=== PATIENT | female | born 1995 | race Caucasian/White ===

== ENCOUNTER 2023-01-25 10:12 | Emergency (ER) | payer OTHER, SELFPAY ==
[2023-01-25 10:25] VITALS: BP 131/76; PULSE 98; RESP 16; TEMP 37.3; O2SAT 100; BMI 15.7
--- NOTE | 2023-01-25 10:44 | ED.GENADULT ---
HPI - General Adult General Chief complaint: Dental/Oral Stated complaint: infection on jaw Time Seen by Provider: 01/25/23 10:44 Source: patient Mode of arrival: ambulatory Limitations: no limitations History of Present Illness HPI narrative: Patient is a 27 year old assigned female at with no reported medical history presenting to the emergency department today with right upper dental pain and swelling. Patient states that she has had dental abscesses before and believes this to be another one. Patient states that she hasn't been to a dentist in a year and the last time she went, they weren't very nice, thus she now has anxiety surrounding dental visits. Patient denies any dizziness, lightheadedness, abdominal pain, nausea, vomiting, fever, chills, blurry vision, double vision, loss of vision, chest pain, difficulty breathing, shortness of breath, back pain, night sweats, pain with urination, increased urinary frequency, increased urinary urgency, blood in her urine or stool, syncope or a near syncopal episode, recent trauma or falls, bowel incontinence, bladder incontinence, bowel retention, bladder retention, or any other complaints at this time. Onset (ago): day(s) (1) Location: mouth Severity: mild Severity scale (1-10): 3 Quality: aching and dull Pain Consistency: constant Relieving factors: none Exacerbating factors: none Associated symptoms: denies other symptoms Treatments prior to arrival: NSAID Related Data Previous Rx's Medication Instructions Recorded chlorhexidine gluconate 0.12 % 15 ml buccal BID #118 mL 01/25/23 mouthwash (Peridex) penicillin V potassium 500 mg 500 mg PO BID 10 days #20 tabs 01/25/23 tablet Allergies Allergy/AdvReac Type Severity Reaction Status Date / Time banana [BANANA] Allergy Severe DIFFICULTY Verified 01/25/23 10:24 BREATHING, ITCHING, BURNING PAIN, LETHARGY Review of Systems Constitutional: Constitutional: Reports no additional constitutional complaints, Denies chills, Denies fever(s) and Denies night sweats Eyes: Eyes: Reports no additional eye complaints, Denies blurry vision, Denies change in vision, Denies diplopia, Denies eye discharge, Denies loss of vision and Denies eye pain ENT: Denies dizziness and Reports mouth pain Cardiovascular: Cardiovascular: Reports no additional cardiovascular complaints, Denies chest pain, Denies lightheadedness, Denies Loss of Consciousness and Denies dyspnea Respiratory: Respiratory: Reports no additional respiratory complaints and Denies dyspnea Gastrointestinal: Gastrointestinal: Reports no additional gastrointestinal complaints, Denies abdominal pain, Denies melena, Denies hematochezia, Denies change in bowel habits and Denies change in stool character Genitourinary: Genitourinary: Denies hematuria, Denies urinary frequency, Denies dysuria, Denies urinary incontinence, Denies urinary hesitancy and Denies urinary urgency Musculoskeletal: Musculoskeletal: Reports no additional musculoskeletal complaints, Denies numbness and Denies tingling Neurologic: Denies dizziness, Denies loss of vision, Denies numbness and Denies tingling Psychiatric: Psychiatric: Reports no additional psychiatric complaints Endocrine: Endocrine: Reports no additional endocrine complaints Hematologic/Lymphatic: Hematologic/Lymphatic: Reports no additional hematologic/lymphatic complaints Allergic/Immunologic: Allergic/Immunologic: Reports no additional allergic/immunologic complaints PMFSH Past Medical History Attestation statement: The following information was validated with the patient. Source: old records reviewed and nursing notes reviewed Social History Social History Advance Directives: No Advance Directives Information Provided: Yes Physical Exam ED Vital Signs: Vital Signs - 24 hr 01/25/23 10:25 Temperature 99.2 F Pulse Rate 98 Respiratory Rate 16 Blood Pressure 131/76 Pulse Oximetry 100 Oxygen Delivery Method Room Air BMI result Body Mass Index 15.7 Const General: cooperative, no acute distress, alert and awake Nutritional Appearance: well nourished Orientation/consciousness: patient oriented x3 Limitations: no limitations [facility] Head: Yes normal to inspection and Yes atraumatic Ears: hearing grossly normal bilaterally and external ears normal General nose exam: Normal external nose present, no nasal discharge noted and no epistaxis Face and sinus: Yes normal facial exam, No abrasion and No laceration Mouth: Normal oral and palatal mucosa present, no drooling and no muffled voice Teeth image: 1. erythema and pain to this area, no fluctuance felt Eyes General: appearance normal, both eyes and all related structures Periorbital: periorbital findings normal Eyelids: Yes eyelids normal Conjunctivae: conjunctivae normal Pupils: Equal, round and reactive pupils present EOM: EOMs intact bilaterally Neck Neck: Yes normal visual inspection, Yes full ROM and Yes no lymphadenopathy Chest Chest palpation & inspection: normal inspection of the chest Resp Effort & Inspection: normal respiratory effort and able to speak in complete sentences GI Inspection: Yes normal to inspection Neuro General: patient oriented x3 and moves all extremities Cranial nerves: Yes Equal, round and reactive pupils present Cognition (Neuro): normal cognition Motor exam (neuro): 5/5 motor strength present throughout Sensory Exam: Normal double simultaneous stimulation for sensation Coordination: [id number] test normal Extrem General: Yes normal to inspection, Yes full ROM and Yes capillary refill normal Psych Appearance: grossly normal Mental Status: mental status grossly normal Affect: normal affect Attitude: cooperative Thought process: Normal thought process present Thought content: Normal thought content present Insight: Good insight present (Psych) Medical Decision Making Medical Decision Making MDM Narrative: Patient is a 27 year old assigned female at with no reported medical history presenting to the emergency department today with right upper dental pain. Patient's physical exam showed an area of the right upper mouth of erythema and pain to palpation but no fluctuance was felt. There was no obvious abscess to incise and drain. I explained my physical exam findings to the patient. I answered all questions asked by the patient. Patient received PO [place] which she stated helped her symptoms significantly. I stressed the importance of the patient taking her medication as prescribed. I stressed the importance of the patient following up with her primary care provider and a dentist. I stressed the importance of the patient returning to the emergency department immediately if her symptoms were to worsen or if she were to develop any dizziness, shortness of breath, difficulty breathing, chest pain, blurry vision, loss of vision, nausea, vomiting, abdominal pain, fever, chills, back pain, or any other complaints. Patient verbalized agreement and understanding with this treatment plan and discharge. Differential Diagnosis Differential Diagnoses: The differential diagnosis associated with the presentation includes dental abscess Discharge Plan Discharge Clinical Impression: Dental abscess Patient Disposition: Home, Self-Care Instructions: Dental Abscess (ED) Additional Instructions: Follow up with your primary care provider and a dentist. Return to the emergency department immediately if your symptoms worsen or if you develop any dizziness, shortness of breath, difficulty breathing, chest pain, blurry vision, loss of vision, nausea, vomiting, abdominal pain, fever, chills, back pain, or any other complaints. Call or visit any of the clinics below to establish with a dentist: [facility] [address] [place] [address] [facility] [address] [facility], [address] [address] [place] [address] [facility] [address] [place] [address] [facility] [address] [place] [address] [place] [address] [place] [address] Prescriptions: New penicillin V potassium 500 mg tablet 500 mg PO BID 10 Days Qty: 20 0RF chlorhexidine gluconate [Peridex] 0.12 % mouthwash 15 ml buccal BID Qty: 118 0RF Referrals[place] [facility] [place] [facility] [place]] (Call to establish and follow up with a primary care provider. If you already have a primary care provider, please follow up with them.) [facility] [place] [facility] [place]] (Call to establish and follow up with a primary care provider. If you already have a primary care provider, please follow up with them.) [facility] [place] [facility] [Provider Group] (Call to establish and follow up with a primary care provider. If you already have a primary care provider, please follow up with them.) Stand Alone Forms: Work/School Release Print Language: Cymraes
[2023-01-25] MEDS: HYDROcodone Bit/Acetam 5/325 TABLET 1 TAB PO (11:13)
== END 2023-01-25 11:19 | disposition home or self-care (01) ==
PROVIDERS: Emergency Provider Emergency Medicine
DX: K04.7 Periapical abscess without sinus (principal); K08.89 Other specified disorders of teeth and supporting structures
CPT/HCPCS: 99283

== ENCOUNTER 2023-01-26 10:24 | Emergency (ER) | payer OTHER, SELFPAY ==
--- NOTE | ~2023-01-26 | CT_ITS ---
EXAMINATION: CT FACIAL BONES WITH CONTRAST CLINICAL INFORMATION: 27-year-old female presents for evaluation of possible dental abscess. COMPARISON: None available. TECHNIQUE: Multidetector CT imaging through the maxillofacial region performed with intravenous administration of 85 mL Omnipaque 350. Axial images and multiplanar reformatted images are reviewed. This CT examination was performed using dose optimization techniques as appropriate, variously including the following: *Automated exposure control *Adjustment of mA and/or kV according to patient size (this includes techniques or standardized protocols for targeted exams where dose is matched to indication/reason for exam; i.e. extremities or head) *Use of iterative reconstruction technique DLP: 206 mGy-cm FINDINGS: Streak artifact is present by a metallic tongue piercing. The patient is missing many mandibular and maxillary teeth. Dental caries and mild periapical lucency around roots of what appears to represent a residual left maxillary canine tooth. However, no evidence of a maxillary region soft tissue abscess. Also, there is no evidence of a perimandibular abscess. The sublingual and submandibular spaces are unremarkable. The parotid and submandibular glands are normal. No pathologic sized lymph nodes within the visualized neck. The orbits, including lamina papyracea, are intact. The globes and retrobulbar fat planes are normal. The nasal bones, pterygoid plates and zygomatic arches are intact. Temporomandibular joints are normal. There is mucosal thickening of the right maxillary sinus without air-fluid level. Otherwise, paranasal sinuses are well aerated. The mastoid air cells are normal. The visualized intracranial structures are normal. The visualized craniocervical junction and upper cervical spine are normal. CT/CT facial bones w IV con IMPRESSION: * No evidence of soft tissue abscess or lymphadenopathy within the visualized face or upper neck. * There is a dental caries and periapical lucency of the left maxillary canine tooth. * [id number] mucosal thickening of the right maxillary sinus without air-fluid level. Otherwise, paranasal sinuses are normal. The maxillofacial bones are intact.
[2023-01-26 10:26] VITALS: BP 127/91; PULSE 96; RESP 16; TEMP 36.6; O2SAT 98; BMI 15.8
--- NOTE | 2023-01-26 10:33 | ED.DENTAL ---
HPI - Dental/Oral General Chief complaint: Dental/Oral Stated complaint: R side of face swollen Time Seen by Provider: 01/26/23 10:45 Source: patient Mode of arrival: ambulatory Limitations: no limitations History of Present Illness HPI Narrative: This is a 27-year-old female presenting to the emergency department for evaluation of right-sided upper dental pain and swelling going on for the past week worsening, was seen here yesterday for the same now reporting worsening R sided facial swelling, discharged home on penicillin and advised to return with new or worsening symptoms. Patient tells me that despite taking 3 doses of antibiotics a dental pain and swelling has been worsening. She tells me she is going to see a dentist however she is nervous to do so due to her previous experiences. Denies fevers, chills, chest pain, shortness of breath, nausea, vomiting, changes in voice, difficulty controlling secretions. Related Data Previous Rx's Medication Instructions Recorded chlorhexidine gluconate 0.12 % 15 ml buccal BID #118 mL 01/25/23 mouthwash (Peridex) penicillin V potassium 500 mg 500 mg PO BID 10 days #20 tabs 01/25/23 tablet amoxicillin 875 mg-potassium 1 tab PO BID 10 days #20 tabs 01/26/23 clavulanate 125 mg tablet ketorolac 10 mg tablet 10 mg PO TID PRN pain 5 days #15 01/26/23 tabs morphine 15 mg immediate release 15 mg PO Q6H PRN pain 5 days #10 01/26/23 tablet tabs prednisone 20 mg tablet 40 mg PO DAILY 5 days #10 tabs 01/26/23 Allergies Allergy/AdvReac Type Severity Reaction Status Date / Time banana [BANANA] Allergy Severe DIFFICULTY Verified 01/26/23 10:26 BREATHING, ITCHING, BURNING PAIN, LETHARGY Review of Systems Review of Systems: Constitutional : No Fever, No Chills ENT/Mouth : No swallowing difficulty, no change in voice, positive dental pain, positive jaw pain, positive facial swelling Eyes: No Eye Pain, No Swelling Cardiovascular : No Chest Pain, No SOB Respiratory : No Cough, No Sputum Gastrointestinal : No Nausea, No Vomiting, No Diarrhea Genitourinary : No Dysuria Musculoskeletal : No Myalgias Skin : No rash Neuro : No Weakness, No Numbness, No Headache Yes all other systems are reviewed and are negative PMFSH Past Medical History Attestation statement: The following information was validated with the patient. Source: old records reviewed and nursing notes reviewed Social History Social History Advance Directives: No Advance Directives Information Provided: No Physical Exam Vital Signs: Vital Signs: Last Vital Signs Temp 98 F 01/26/23 10:26 Pulse 68 01/26/23 12:31 Resp 16 01/26/23 12:31 BP 115/77 01/26/23 12:31 Pulse Ox 100 01/26/23 12:31 O2 Del Method Room Air 01/26/23 12:31 BMI result Body Mass Index 15.8 vss Appearance: Alert.? Oriented X3.? No acute distress.? Head: Normocephalic, atraumatic, no step-offs or deformities Eyes: Pupils equal, round and reactive to light.? ENT: Pharynx normal. Uvula midline. Normal tonsils. Tooth 1-7. With surrounding erythema and pain with palpation. No fluctuance appreciated. Poor dentition throughout. R sided facial swelling and TTP overlying R. cheek/ zygomatic region. Patient is speaking in full sentences controlling secretions well Neck: Normal inspection.? Neck supple.? CVS: Normal heart rate and rhythm.? Pulses normal.? Respiratory: No respiratory distress.? Breath sounds normal.? Abdomen: Soft and nontender.? Skin: Skin warm and dry.? Normal skin color.? Normal skin turgor.? Extremities: No lower extremity edema.? No calf ttp. 5/5 strength to bilateral upper and lower extremities Neuro: Oriented X 3.? No motor deficit.? No sensory deficit. CN 2-12 intact Course Reevaluation(s) Reevaluation #1: CBC within normal limits. Chemistry unremarkable, lactic normal. COVID negative. No evidence of soft tissue abscess or lymphadenopathy within the visualize face or upper neck On CT scan. There are dental caries and periapical lucencies of the left maxillary canine tooth. Will DC home on augmentin, will add prednisoe and give morphine for pain control. Educated patient on diagnosis and treatment plan, answered all question, patient verbalizes understanding. At this time patient will be discharged home, advised to return with new or worsening symptoms. Educated on worrisome signs and symptoms and when to return. At this time I feel comfortable discharge home. At time of discharge patient still complaining of some pain additional morphine given Will have her follow up with PCP, dentist tomorrow. Time: 14:05 Medications Administered Discontinued Medications Generic Name Dose Route Start Last Admin Trade Name Noemy PRN Reason Stop Dose Admin Sodium Chloride 1,000 mls @ 999 mls/hr 01/26/23 10:45 01/26/23 12:25 Ns IV 01/26/23 11:45 Infused .Q1H1M YAEL Infusion Clindamycin Phosphate 600 mg in 50 mls @ 100 mls/hr 01/26/23 10:47 01/26/23 12:08 Cleocin IV 01/26/23 11:16 Infused ONCE ONE Infusion Iohexol 100 ml 01/26/23 12:50 01/26/23 12:50 Iohexol 350 Mg/Ml 100 Ml Infus..Btl IV 01/26/23 12:51 85 ml ONCE ONE Administration Morphine Sulfate 4 mg 01/26/23 11:54 01/26/23 12:05 Morphine Sulfate 4 Mg/Ml Cartridge IVPUSH 01/26/23 11:55 4 mg ONCE ONE Administration Protocol Medical Decision Making Medical Decision Making [facility] Narrative: [age]-year-old female presents with right-sided dental pain, and swelling despite taking penicillin for 3 doses. Routinely seen by a dentist Physical exam significant Pharynx normal. Uvula midline. Normal tonsils. Tooth 1-7. With surrounding erythema and pain with palpation. No fluctuance appreciated. Poor dentition throughout. R sided facial swelling and TTP overlying R. cheek/ zygomatic region. Patient is speaking in full sentences controlling secretions well This is likely poor dentition, dental caries versus abscess. No signs of airway compromise Will obtain basic labs, blood cultures, lactic acid, CT of facial bones with IV contrast to rule out dental abscess. Differential Diagnosis Differential Diagnoses: The differential diagnosis associated with the presentation includes This is likely poor dentition, dental caries versus abscess. No signs of airway compromise Admission/Observation Consideration of admission/observation: Escalation of care including admission/observation considered Not indicated Lab Data [facility] Lab Attestation statement: I reviewed the patient's lab results. 01/26/23 11:07 01/26/23 11:07 Labs: Lab Results 01/26/23 01/26/23 01/26/23 Range/Units 11:07 11:07 11:07 WBC 8.5 (4.8-10.8) X10*3/uL RBC 4.10 L (4.20-5.50) X10*6/uL Hgb 13.5 (12.0-16.0) g/dl Hct 39.3 (37.0-47.0) % MCV 95.9 (80.0-98.0) fL MCH 32.9 (27.0-33.0) pg MCHC 34.4 (31.0-35.0) g/dl RDW 12.5 (11.0-16.0) % Plt Count 244 (160-400) X10*3/uL MPV 9.9 (9.4-12.3) fL Immature Gran % (Auto) 0.4 (0.0-0.4) % Neut % (Auto) 71.9 (45-73) % Lymph % (Auto) 19.2 L (20-40) % [place] % (Auto) 5.2 (2-11) % Eos % (Auto) 2.7 (0-4) % Baso % (Auto) 0.6 (0-2) % Lymph # (Auto) 1.6 (1.2-4.9) X10*3/uL [place] # (Auto) 0.4 (0.1-1.2) X10*3/uL Eos # (Auto) 0.2 (0.0-0.4) X10*3/uL Baso # (Auto) 0.1 (0.0-0.2) X10*3/uL Abs Immat Gran (auto) 0.03 (0.00-0.03) X10*3/uL Absolute Neuts (auto) 6.1 (2.0-8.3) x10*3/uL Absolute Nucleated RBC 0.000 (0.0-0.012) X10*3/uL Nucleated RBC % (auto) 0.0 (0.0-0.2) /100WBC Sodium 141 (135-145) mmol/L Potassium 3.9 (3.3-5.1) mmol/L Chloride 108 (96-108) mmol/L Carbon Dioxide 25 (22-29) mmol/L Anion Gap 12 (12-20) BUN 6 L (9-16) mg/dL Creatinine 0.82 (0.5-1.4) mg/dL Estim Creat Clear Calc 73.9 Estimated GFR > 60 Random Glucose 82 (60-115) mg/dL Lactic Acid 0.9 (0.5-2.0) mmol/L Calcium 9.5 (8.4-10.2) mg/dL Magnesium 2.2 (1.6-2.6) mg/dL Total Bilirubin 0.8 (0.0-1.0) mg/dL AST 130 H (5-31) U/L ALT 158 H (0-31) U/L Alkaline Phosphatase 76 (39-117) U/L Total Protein 6.7 (6.5-8.0) g/dL Albumin 4.3 (3.5-5.0) g/dL COVID-19 (DELMIS) (Negative) COVID-19 Clin Com 01/26/23 Range/Units 11:07 WBC (4.8-10.8) X10*3/uL RBC (4.20-5.50) X10*6/uL Hgb (12.0-16.0) g/dl Hct (37.0-47.0) % MCV (80.0-98.0) fL MCH (27.0-33.0) pg MCHC (31.0-35.0) g/dl RDW (11.0-16.0) % Plt Count (160-400) X10*3/uL MPV (9.4-12.3) fL Immature Gran % (Auto) (0.0-0.4) % Neut % (Auto) (45-73) % Lymph % (Auto) (20-40) % [place] % (Auto) (2-11) % Eos % (Auto) (0-4) % Baso % (Auto) (0-2) % Lymph # (Auto) (1.2-4.9) X10*3/uL [place] # (Auto) (0.1-1.2) X10*3/uL Eos # (Auto) (0.0-0.4) X10*3/uL Baso # (Auto) (0.0-0.2) X10*3/uL Abs Immat Gran (auto) (0.00-0.03) X10*3/uL Absolute Neuts (auto) (2.0-8.3) x10*3/uL Absolute Nucleated RBC (0.0-0.012) X10*3/uL Nucleated RBC % (auto) (0.0-0.2) /100WBC Sodium (135-145) mmol/L Potassium (3.3-5.1) mmol/L Chloride (96-108) mmol/L Carbon Dioxide (22-29) mmol/L Anion Gap (12-20) BUN (9-16) mg/dL Creatinine (0.5-1.4) mg/dL Estim Creat Clear Calc Estimated GFR Random Glucose (60-115) mg/dL Lactic Acid (0.5-2.0) mmol/L Calcium (8.4-10.2) mg/dL Magnesium (1.6-2.6) mg/dL Total Bilirubin (0.0-1.0) mg/dL AST (5-31) U/L ALT (0-31) U/L Alkaline Phosphatase (39-117) U/L Total Protein (6.5-8.0) g/dL Albumin (3.5-5.0) g/dL COVID-19 (DELMIS) Negative (Negative) COVID-19 Clin Com See Note Core Measures AMI core measures followed: Yes Measure exclusions: not indicated Critical Care Time Critical Care Time Critical Care Time: No Discharge Plan Discharge Clinical Impression: Toothache, Dental caries Patient Disposition: Home, Self-Care Instructions: Toothache (ED) Additional Instructions: Take your medications as prescribed. If you were prescribed antibiotics today, it is important that you take your medication to their entirety, do not skip any doses, do not finish them early. Follow-up with your primary care provider and dentist tomorrow. Return to the emergency department with new or worsening symptoms. Such as worsening pain, trouble controlling her secretions, fevers, chills, changes in voice. In case of emergency call 911 Start taking clindamycin and start taking Augmentin. A narcotic has been sent to your pharmacy please take this as prescribed. Do not take more than the prescribed dose. Narcotic medications can cause addiction. Please do not mix them with alcohol. Do not take them while driving or operating machinery. Do not take them with any other narcotics. Do not share them with friends or family. They can cause constipation. Take them only for severe pain. Toradol has been sent to your pharmacy, you tolerated this well in the department. Please take this as prescribed do not take this with ibuprofen, or other NSAIDs, do not mix this with alcohol. Side effects of this medication including increased risk for bleeding and possible kidney injury. CT/CT facial bones w IV con IMPRESSION: *? No evidence of soft tissue abscess or lymphadenopathy within the visualized face or upper neck. *? There is a dental caries and periapical lucency of the left maxillary canine tooth. *? [id number]-[id number] mucosal thickening of the right maxillary sinus without air-fluid level. Otherwise, paranasal sinuses are normal. The maxillofacial bones are intact. Prescriptions: New ketorolac 10 mg tablet 10 mg PO TID PRN (Reason: pain) 5 Days Qty: 15 0RF morphine 15 mg tablet 15 mg PO Q6H PRN (Reason: pain) 5 Days Qty: 10 0RF Rx Instructions: Partial Fill upon patient request. amoxicillin-pot clavulanate 875-125 mg tablet 1 tab PO BID 10 Days Qty: 20 0RF prednisone 20 mg tablet 40 mg PO DAILY 5 Days Qty: 10 0RF No Action penicillin V potassium 500 mg tablet 500 mg PO BID 10 Days Qty: 20 0RF chlorhexidine gluconate [Peridex] 0.12 % mouthwash 15 ml buccal BID Qty: 118 0RF Referrals: Physician,Unknown J [Primary Care Provider] - 2 days
[2023-01-26 11:16] LABS: MANUAL DIFF FLAG NO
[2023-01-26 11:18] LABS: Basophils Absolute Auto 0.1 X10*3/uL (0.0-0.2); Basophils Percent Auto 0.6 % (0-2); Eosinophils Absolute Auto 0.2 X10*3/uL (0.0-0.4); Eosinophils Percent Auto 2.7 % (0-4); Hematocrit 39.3 % (37.0-47.0); Hemoglobin 13.5 g/dl (12.0-16.0); Imm Gran Abs Auto 0.03 X10*3/uL (0.00-0.03); Imm Gran Pct Auto 0.4 % (0.0-0.4); Lymphocytes Absolute Auto 1.6 X10*3/uL (1.2-4.9); Lymphocytes Percent Auto 19.2 % (20-40); Mean Corpuscular HGB Conc 34.4 g/dl (31.0-35.0); Mean Corpuscular Hemoglobin 32.9 pg (27.0-33.0); Mean Corpuscular Volume 95.9 fL (80.0-98.0); Mean Platelet Volume 9.9 fL (9.4-12.3); Monocytes Absolute Auto 0.4 X10*3/uL (0.1-1.2); Monocytes Percent Auto 5.2 % (2-11); Neutrophils Absolute Auto 6.1 x10*3/uL (2.0-8.3); Neutrophils Percent Auto 71.9 % (45-73); Platelet Count 244 X10*3/uL (160-400); Red Cell Distribution Width 12.5 % (11.0-16.0); White Blood Count 8.5 X10*3/uL (4.8-10.8)
[2023-01-26] MEDS: 0.9 % Sodium Chloride 1,000 ML 999 ML IV (11:25)
--- NOTE | 2023-01-26 11:30 | PC.NURSE ---
clindamycin ordered from pharmacy, 1L NS running per order via 20G IV in Right AC
[2023-01-26 11:31] LABS: Lactic Acid 0.9 mmol/L (0.5-2.0)
[2023-01-26 11:35] LABS: Alanine Aminotransferase 158 U/L (0-31); Albumin Level 4.3 g/dL (3.5-5.0); Alkaline Phosphatase 76 U/L (39-117); Anion Gap 12 (12-20); Aspartate Amino Transferase 130 U/L (5-31); Bilirubin Total 0.8 mg/dL (0.0-1.0); Blood Urea Nitrogen 6 mg/dL (9-16); Calcium 9.5 mg/dL (8.4-10.2); Carbon Dioxide 25 mmol/L (22-29); Chloride 108 mmol/L (96-108); Creatinine Clr Calc Pharmacy 73.9; Estimated Glomerular Filt Rate > 60; Glucose Random 82 mg/dL (60-115); Magnesium 2.2 mg/dL (1.6-2.6); Potassium 3.9 mmol/L (3.3-5.1); Sodium 141 mmol/L (135-145); Total Protein 6.7 g/dL (6.5-8.0)
[2023-01-26 11:39] LABS: IDNOW Serial# 08D9AD1C
[2023-01-26 11:40] LABS: COVID-19 Test Negative (Negative)
[2023-01-26] MEDS: Clindamycin Phosphate/D5W 600 MG/50 ML PIGGYBACK 100 MG IV (11:51)
[2023-01-26 12:05] VITALS: RESP 15
[2023-01-26] MEDS: Morphine Sulfate 4 MG/ML CARTRIDGE IVPUSH (12:05)
[2023-01-26 12:31] VITALS: BP 115/77; PULSE 68; RESP 16; O2SAT 100
[2023-01-26] MEDS: iohexoL 350 MG/ML 100 ML INFUS..BTL IV (12:50)
[2023-01-26] MEDS: Ketorolac Tromethamine 15 MG/ML VIAL 30 MG IM (14:17)
== END 2023-01-26 14:27 | disposition home or self-care (01) ==
PROVIDERS: Physician Assistant; Emergency Provider Emergency Medicine
DX: K02.9 Dental caries, unspecified (principal); Z79.899 Other long term (current) drug therapy; Z20.822 Contact with and (suspected) exposure to COVID-19; Z20.828 Contact with and (suspected) exposure to other viral communicable diseases
CPT/HCPCS: 70487; 80053; 83605; 83735; 85025; 87040; 87635; 96361; 96365; 96375; 99284; J1885; J2270; Q9967

== ENCOUNTER 2023-04-22 12:41 | Emergency (ER) | payer OTHER, SELFPAY ==
[2023-04-22 12:50] VITALS: BP 131/89; PULSE 95; RESP 16; TEMP 36.3; O2SAT 100; BMI 16.3
--- NOTE | 2023-04-22 12:52 | ED.DENTAL ---
HPI - Dental/Oral General Chief complaint: Dental/Oral Stated complaint: Facial swelling Time Seen by Provider: 04/22/23 12:52 Source: patient and old records reviewed Mode of arrival: ambulatory Limitations: no limitations History of Present Illness HPI Narrative: 27 yo female with history of a recent right upper molar abscess in January 2023 presents to the ER for evaluation of right upper facial swelling that started yesterday morning when she woke up. She states she has been taking motrin and tylenol for pain and swelling with no relief. She was unable to get in with her dentist and has an appointment with oral surgeon for extraction in Oct 2023. She has pain with chewing, changing head positions. No fevers. No drainage from the gums. No difficulty opening or closing the mouth. No neck swelling MD Complaint: tooth pain (and facial swelling) Location: Tooth # (4) Onset (ago): day(s) (2) Duration: constant Severity: severe Exacerbating factors: chewing and cold Context: history of dental caries and poor dental care Associated symptoms: gum swelling Treatment prior to arrival: topical analgesic and oral analgesic Related Data Previous Rx's Medication Instructions Recorded chlorhexidine gluconate 0.12 % 15 ml buccal BID #118 mL 01/25/23 mouthwash (Peridex) penicillin V potassium 500 mg 500 mg PO BID 10 days #20 tabs 01/25/23 tablet amoxicillin 875 mg-potassium 1 tab PO BID 10 days #20 tabs 01/26/23 clavulanate 125 mg tablet ketorolac 10 mg tablet 10 mg PO TID PRN pain 5 days #15 01/26/23 tabs morphine 15 mg immediate release 15 mg PO Q6H PRN pain 5 days #10 01/26/23 tablet tabs prednisone 20 mg tablet 40 mg PO DAILY 5 days #10 tabs 01/26/23 amoxicillin 875 mg-potassium 1 tab PO BID #20 tabs 04/22/23 clavulanate 125 mg tablet ibuprofen 600 mg tablet 600 mg PO Q8H PRN fever or pain 04/22/23 #30 tabs tramadol 50 mg tablet 50 mg PO Q8H PRN severe pain 04/22/23 (scale score 7-10) #10 tabs Allergies Allergy/AdvReac Type Severity Reaction Status Date / Time banana [BANANA] Allergy Severe DIFFICULTY Verified 01/26/23 10:26 BREATHING, ITCHING, BURNING PAIN, LETHARGY Review of Systems Review of Systems: Yes all other systems are reviewed and are negative [facility] Social History Social History Advance Directives: No Advance Directives Information Provided: No Physical Exam Vital Signs: Vital Signs: Last Vital Signs Temp 97.4 F 04/22/23 12:50 Pulse 95 04/22/23 12:50 Resp 16 04/22/23 12:50 BP 131/89 04/22/23 12:50 Pulse Ox 100 04/22/23 12:50 O2 Del Method Room Air 04/22/23 12:50 BMI result Body Mass Index 16.3 Appearance: Alert. Oriented X3. No acute distress. Head: normocephalic, atraumatic. Face: right maxillary swelling noted without overylying skin changes. Eyes: Pupils equal, round and reactive to light. ENT: Poor dentition with several missing teeth, decaying teeth. right upper dental area with gingival swelling and erythema and dental tenderness of tooth 4 and 5. no mobility. no trismus. Pharynx normal. No tonsillar swelling or exudate. Neck: Normal inspection. Neck supple. No swelling anteriorly, no LAD CVS: Normal heart rate and rhythm. Pulses normal. Respiratory: No respiratory distress. Skin: Skin warm and dry. Normal skin color Extremities: Normal inspection x4 Neuro/psych: Oriented X 3.grossly normal Medical Decision Making Medical Decision Making MDM Narrative: 27 yo female with history of poor dentition, recent right upper dental abscess presenting to the ER with right upper facial pain/swelling in the same area of previous infection. No trismus on exam. No visible or palpable area to drain today. Will start abx and pain control. she will f/u with her dentist and oral surgeon as soon as possible. return precautions discussed Differential Diagnosis Differential Diagnoses: The differential diagnosis associated with the presentation includes dental abscess, dental decay, gingivitis, dental trauma, no evidence of ludwigs angina External Record Review External record reviewed: Outpatient record Prescription Management I considered prescription management with: Pain Medication and Antibiotic Chronic Conditions Patient?s care impacted by: Other (active smoker, poor dentition) Critical Care Time Critical Care Time Critical Care Time: No Discharge Plan Discharge Clinical Impression: Abscess, dental Patient Disposition: Home, Self-Care Instructions: Dental Abscess (ED) Additional Instructions: Take the prescribed antibiotics as directed, complete the entire course and do not miss any doses Take the prescribed anti-inflammatory medication as directed Use ice to the area several times per day Use the previously prescribed antiseptic mouth wash two times per day Follow up with your dentist or oral surgeon EMMANUEL If you develop new or worsening symptoms call 911 or come back to the ER for further evaluation. Prescriptions: New amoxicillin-pot clavulanate 875-125 mg tablet 1 tab PO BID Qty: 20 0RF ibuprofen 600 mg tablet 600 mg PO Q8H PRN (Reason: fever or pain) Qty: 30 0RF tramadol 50 mg tablet 50 mg PO Q8H PRN (Reason: severe pain (scale score 7-10)) Qty: 10 0RF No Action penicillin V potassium 500 mg tablet 500 mg PO BID 10 Days Qty: 20 0RF chlorhexidine gluconate [Peridex] 0.12 % mouthwash 15 ml buccal BID Qty: 118 0RF ketorolac 10 mg tablet 10 mg PO TID PRN (Reason: pain) 5 Days Qty: 15 0RF morphine 15 mg tablet 15 mg PO Q6H PRN (Reason: pain) 5 Days Qty: 10 0RF Rx Instructions: Partial Fill upon patient request. amoxicillin-pot clavulanate 875-125 mg tablet 1 tab PO BID 10 Days Qty: 20 0RF prednisone 20 mg tablet 40 mg PO DAILY 5 Days Qty: 10 0RF Interventions: ED Discharge Assessment Last Done: 04/22/23 13:08 Discharge Date/Time: 04/22/23 13:09
== END 2023-04-22 13:09 | disposition home or self-care (01) ==
PROVIDERS: Emergency Provider Emergency Medicine
DX: K04.7 Periapical abscess without sinus (principal); F17.200 Nicotine dependence, unspecified, uncomplicated; Z79.899 Other long term (current) drug therapy
CPT/HCPCS: 99282; 99283

== ENCOUNTER 2023-05-08 18:15 | Emergency (ER) | payer OTHER, SELFPAY ==
[2023-05-08 19:04] VITALS: BP 137/86; PULSE 89; RESP 18; TEMP 37.4; O2SAT 99; BMI 15.7
--- NOTE | 2023-05-08 19:04 | ED.GENADULT ---
HPI - General Adult General Chief complaint: Skin/Abscess/Foreign Body Stated complaint: soft tissue infection in cheek Time Seen by Provider: 05/08/23 21:39 Source: patient, RN notes reviewed and old records reviewed Mode of arrival: ambulatory Limitations: no limitations History of Present Illness HPI narrative: 27-year-old female presents for evaluation of facial swelling and dental pain. She reports that she initially had an issue similarly about 3 months ago She was prescribed antibiotics and it went away 3 weeks ago her symptoms returned She and came here and was prescribed Augmentin She reports that she still had some left over 1 her symptoms started to worsen a few days ago Denies any fevers, chills Related Data Previous Rx's Medication Instructions Recorded chlorhexidine gluconate 0.12 % 15 ml buccal BID #118 mL 01/25/23 mouthwash (Peridex) penicillin V potassium 500 mg 500 mg PO BID 10 days #20 tabs 01/25/23 tablet amoxicillin 875 mg-potassium 1 tab PO BID 10 days #20 tabs 01/26/23 clavulanate 125 mg tablet ketorolac 10 mg tablet 10 mg PO TID PRN pain 5 days #15 01/26/23 tabs morphine 15 mg immediate release 15 mg PO Q6H PRN pain 5 days #10 01/26/23 tablet tabs prednisone 20 mg tablet 40 mg PO DAILY 5 days #10 tabs 01/26/23 amoxicillin 875 mg-potassium 1 tab PO BID #20 tabs 04/22/23 clavulanate 125 mg tablet ibuprofen 600 mg tablet 600 mg PO Q8H PRN fever or pain 04/22/23 #30 tabs tramadol 50 mg tablet 50 mg PO Q8H PRN severe pain 04/22/23 (scale score 7-10) #10 tabs clindamycin HCl 300 mg capsule 300 mg PO Q8H #20 caps 05/08/23 Allergies Allergy/AdvReac Type Severity Reaction Status Date / Time banana [BANANA] Allergy Severe DIFFICULTY Verified 05/08/23 19:07 BREATHING, ITCHING, BURNING PAIN, LETHARGY Review of Systems Constitutional: Constitutional: Denies chills and Denies fever(s) ENT: Reports facial pain and Reports other (Reports dental pain) Cardiovascular: Cardiovascular: Denies chest pain and Denies dyspnea Respiratory: Respiratory: Denies cough and Denies dyspnea Gastrointestinal: Gastrointestinal: Denies abdominal pain, Denies nausea and Denies vomiting PMFSH Social History Social History Advance Directives: No Advance Directives Information Provided: No Physical Exam ED Vital Signs: Vital Signs - 24 hr 05/08/23 19:04 05/08/23 21:04 Temperature 99.3 F 98.9 F Pulse Rate 89 86 Respiratory Rate 18 18 Blood Pressure 137/86 108/75 Pulse Oximetry 99 100 Oxygen Delivery Method Room Air Room Air BMI result Body Mass Index 15.7 Const General: healthy appearing, comfortable, no acute distress, alert and awake Nutritional Appearance: well nourished Orientation/consciousness: patient oriented x3 HENMT Other: Patient has mild right-sided facial swelling. She has a small area of fluctuance to the gingiva superior to tooth #6. No active drainage Head: Yes normocephalic and Yes atraumatic Neck Neck: Yes full ROM Resp Effort & Inspection: normal respiratory effort, able to speak in complete sentences and not labored GI Inspection: No distended Palpation (GI): Soft to palpation, not firm, nontender, no guarding and not rigid Auscultation: normoactive bowel sounds Skin General skin exam: no rashes or lesions noted and elasticity normal Neuro General: patient oriented x3 Cranial nerves: Yes Bilaterally intact EOM present Cognition (Neuro): normal cognition Extrem Other: Moving all extremities well without any obvious deformities Course Course Course Narrative: RME: 27yo F w/PMHx dental abscess seem and tx in our ED on 04/22/23 Rx Augmentin c/o increasing swelling and pain to area w/palpable bubble. Denies fever +R upper dental abscess noted w/+fluctuance, +r facial swelling noted. Will need I&D Lidocaine ordered Full HPI, ROS and PE to be performed by primary ED provider. Medications Administered Discontinued Medications Generic Name Dose Route Start Last Admin Trade Name Freq PRN Reason Stop Dose Admin Lidocaine HCl 5 ml 05/08/23 19:07 05/08/23 22:14 Lidocaine Hcl 1 % Mpf 5 Ml Vial INFILTRATI 05/08/23 19:08 5 ml ONCE ONE Administration Procedures Abscess I/D Site: oral Side (if applicable): right (Tooth 6.) Local Anesthetic: lidocaine 1% Amount of anesthesia used (mL): 1 Technique: needle aspiration Amount of fluid expressed (mL): 1 Medical Decision Making Medical Decision Making MDM Narrative: Patient has been Augmentin which she has not been taking as prescribed however we will change her to clindamycin. I did attempt incision and drainage with needle aspiration and was able to aspirate a small amount of purulent material Differential Diagnosis Differential Diagnoses: The differential diagnosis associated with the presentation includes Facial pain Dental caries Dental abscess Atypical facial pain Gingivitis Discharge Plan Discharge Clinical Impression: Right facial pain, Dental abscess Patient Disposition: Home, Self-Care Instructions: Dental Abscess (ED) Additional Instructions: Take clindamycin 3 times daily for the next 7 days. Apply warm compresses for 10-15 minute every 4 hours Use ibuprofen/Tylenol as needed for pain Follow-up with your dentist Prescriptions: New clindamycin HCl 300 mg capsule 300 mg PO Q8H Qty: 20 0RF No Action penicillin V potassium 500 mg tablet 500 mg PO BID 10 Days Qty: 20 0RF chlorhexidine gluconate [Peridex] 0.12 % mouthwash 15 ml buccal BID Qty: 118 0RF ketorolac 10 mg tablet 10 mg PO TID PRN (Reason: pain) 5 Days Qty: 15 0RF morphine 15 mg tablet 15 mg PO Q6H PRN (Reason: pain) 5 Days Qty: 10 0RF Rx Instructions: Partial Fill upon patient request. amoxicillin-pot clavulanate 875-125 mg tablet 1 tab PO BID 10 Days Qty: 20 0RF prednisone 20 mg tablet 40 mg PO DAILY 5 Days Qty: 10 0RF amoxicillin-pot clavulanate 875-125 mg tablet 1 tab PO BID Qty: 20 0RF ibuprofen 600 mg tablet 600 mg PO Q8H PRN (Reason: fever or pain) Qty: 30 0RF tramadol 50 mg tablet 50 mg PO Q8H PRN (Reason: severe pain (scale score 7-10)) Qty: 10 0RF Interventions: ED Discharge Assessment Last Done: 05/08/23 22:30
[2023-05-08 21:04] VITALS: BP 108/75; PULSE 86; RESP 18; TEMP 37.2; O2SAT 100
[2023-05-08] MEDS: Lidocaine HCl 1 % MPF 5 ML VIAL INFILTRATI (22:14)
[2023-05-08] MEDS: Clindamycin HCL 300 MG CAPSULE PO (22:33)
--- NOTE | 2023-05-08 22:35 | PC.NURSE ---
pt medicated per MAR.
== END 2023-05-08 22:35 | disposition home or self-care (01) ==
PROVIDERS: Emergency Provider Emergency Medicine
DX: K04.7 Periapical abscess without sinus (principal); R51.9 Headache, unspecified; K08.89 Other specified disorders of teeth and supporting structures
CPT/HCPCS: 41800; 99283; 99284

== ENCOUNTER 2024-01-11 14:07 | Emergency (ER) | payer MEDICAID, SELFPAY ==
[2024-01-11 14:44] VITALS: BP 133/84; PULSE 122; RESP 18; TEMP 37.1; O2SAT 98; BMI 15.7
--- NOTE | 2024-01-11 15:01 | ECG_ITS ---
Test Reason : TACHYCARDIA Blood Pressure : / mmHG Vent. Rate : 095 BPM Atrial Rate : 095 BPM P-R Int : 108 ms QRS Dur : 076 ms QT Int : 348 ms P-R-T Axes : 057 095 000 degrees QTc Int : 437 ms Sinus rhythm with short ND Rightward axis Nonspecific T wave abnormality Abnormal ECG No previous ECGs available Referred By: Marcello Dubon Electronically Signed By:RICKI ALBARRAN MD
--- NOTE | 2024-01-11 15:02 | ED_ITS ---
HPI - General Adult General Chief complaint: Upper Respiratory Symptoms Stated complaint: COVID+ wants note Time Seen by Provider: 01/11/24 14:58 Source: patient Mode of arrival: ambulatory Limitations: no limitations History of Present Illness HPI narrative: 28 yold female presents to the ED for URI symptoms since friday and this morning took a home test and was positive for covid. Patient comes to the ED just for doctors note for her job. Patient states no chest pain or shorntess of breath. Related Data Previous Rx's ?Medication ?Instructions ?Recorded chlorhexidine gluconate 0.12 % 15 ml buccal BID #118 mL 01/25/23 mouthwash (Peridex) penicillin V potassium 500 mg 500 mg PO BID 10 days #20 tabs 01/25/23 tablet amoxicillin 875 mg-potassium 1 tab PO BID 10 days #20 tabs 01/26/23 clavulanate 125 mg tablet ketorolac 10 mg tablet 10 mg PO TID PRN pain 5 days #15 01/26/23 tabs morphine 15 mg immediate release 15 mg PO Q6H PRN pain 5 days #10 01/26/23 tablet tabs prednisone 20 mg tablet 40 mg (2 x 20 mg) PO DAILY 5 days 01/26/23 #10 tabs amoxicillin 875 mg-potassium 1 tab PO BID #20 tabs 04/22/23 clavulanate 125 mg tablet ibuprofen 600 mg tablet 600 mg PO Q8H PRN fever or pain 04/22/23 #30 tabs tramadol 50 mg tablet 50 mg PO Q8H PRN severe pain 04/22/23 (scale score 7-10) #10 tabs clindamycin HCl 300 mg capsule 300 mg PO Q8H #20 caps 05/08/23 Allergies Allergy/AdvReac Type Severity Reaction Status Date / Time banana [BANANA] Allergy Severe DIFFICULTY Verified 01/11/24 14:49 BREATHING, ITCHING, BURNING PAIN, LETHARGY Review of Systems Review of Systems: URI Symptoms. Wants for Doctor NOTe Yes all other systems are reviewed and are negative PMFSH Social History Social History Advance Directives: No Advance Directives Information Provided: No Physical Exam ED Vital Signs: Vital Signs - 24 hr 01/11/24 14:44 01/11/24 15:19 Temperature 98.8 F 98 F Pulse Rate 122 H 118 H Respiratory Rate 18 18 Blood Pressure 133/84 98/50 L Pulse Oximetry 98 98 Oxygen Delivery Method Room Air Room Air BMI result Body Mass Index 15.7 Const General: cooperative, healthy appearing, comfortable, no acute distress, well developed, alert and awake Orientation/consciousness: patient oriented x3 [facility] Head: Yes normal to inspection, Yes No palpable skull fracture present, Yes normocephalic and Yes atraumatic Ears: hearing grossly normal bilaterally, external ears normal, TM's normal bilaterally, TM normal on the right, TM normal on the left, EAC's normal, mastoids normal and no periauricular adenopathy Eyes General: appearance normal, both eyes and all related structures Neck Neck: Yes normal visual inspection, Yes full ROM, Yes no lymphadenopathy, Yes no meningeal signs, Yes trachea midline, Yes supple, No anterior neck swelling and No tender Chest Chest palpation & inspection: normal inspection of the chest and normal palpation of entire chest wall Resp Effort & Inspection: normal respiratory effort and able to speak in complete sentences Auscultation: clear to auscultation bilaterally Cardio Jugular venous distension: no JVD Heart sounds: S1 normal heart sound present and S2 normal heart sound present GI Inspection: Yes normal to inspection and No abdominal wall ecchymosis Palpation (GI): Soft to palpation, not firm, nontender, no guarding and not rigid General: Yes no CVA tenderness Back/Spine/Pelvis Back: no CVA tenderness and No back tenderness Skin General skin exam: no rashes or lesions noted, elasticity normal and turgor normal Neuro General: patient oriented x3, gait normal, tone normal, moves all extremities, Normal light touch and pain sensation, no meningeal signs, no focal motor deficits, CN's II-XI intact bilaterally and normal sensation to monofilament Extrem General: Yes normal to inspection, Yes full ROM and Yes capillary refill normal Psych Appearance: grossly normal, well kempt and not disheveled Course Course Course Narrative: RME: 28 yold carlos manuel tested positive this morning for covid presents to the ED for covid note. Patient only states body aches and chills. Patient denies any chest pain, shortness of breath, or coughing up blood. Patient denies any leg swelling or calf pain. Vital signs stable be sinus tachycardia most likely due to COVID infection. We will do EKG to make sure sinus tach. Medical Decision Making Medical Decision Making MDM Narrative: RME: 28-year-old female tested positive for COVID this morning presents to the ED accident for work note. Patient states coughing body aches since Friday without any chest pain or shortness of breath. EKG heart rate 95. SInus rythm. negaive STEMI. Patient well-appearing. Patient denies any chest pain or shortness of breath. Lower extremity negative for swelling pitting edema or calf pain. Lungs are clear. Patient educated on rest oral hydration. Patient educated on worrisome signs informed to return to ED if patient has them. Differential Diagnosis Differential Diagnoses: The differential diagnosis associated with the presentation includes (COVID, influenza, strep) Admission/Observation Consideration of admission/observation: Escalation of care including admission/observation considered Independent Historian Clinical information obtained from an independent historian. History obtained from or confirmed by: Other (Patient) External Record Review External record reviewed: Other (Prior visit) Discharge Plan Discharge Clinical Impression: COVID-19 Patient Disposition: Home, Self-Care Instructions: COVID-19 (Coronavirus Disease 2019) (ED) Additional Instructions: Return to the ED immediately for any chest pain, shortness of breath, weakness, dizziness, calf pain, leg swelling, coughing up blood, or any other concerning symptoms. Recommend follow-up with primary care provider Prescriptions: No Action penicillin V potassium 500 mg tablet 500 mg PO BID 10 Days Qty: 20 0RF chlorhexidine gluconate [Peridex] 0.12 % mouthwash 15 ml buccal BID Qty: 118 0RF ketorolac 10 mg tablet 10 mg PO TID PRN (Reason: pain) 5 Days Qty: 15 0RF morphine 15 mg tablet 15 mg PO Q6H PRN (Reason: pain) 5 Days Qty: 10 0RF Rx Instructions: Partial Fill upon patient request. amoxicillin-pot clavulanate 875-125 mg tablet 1 tab PO BID 10 Days Qty: 20 0RF prednisone 20 mg tablet 40 mg PO DAILY 5 Days Qty: 10 0RF amoxicillin-pot clavulanate 875-125 mg tablet 1 tab PO BID Qty: 20 0RF ibuprofen 600 mg tablet 600 mg PO Q8H PRN (Reason: fever or pain) Qty: 30 0RF tramadol 50 mg tablet 50 mg PO Q8H PRN (Reason: severe pain (scale score 7-10)) Qty: 10 0RF clindamycin HCl 300 mg capsule 300 mg PO Q8H Qty: 20 0RF Stand Alone Forms: Work/School Release Interventions: ED Discharge Assessment Last Done: 01/11/24 15:19 Discharge Date/Time: 01/11/24 15:20 Print Language: Frisian
[2024-01-11 15:19] VITALS: BP 98/50; PULSE 118; RESP 18; TEMP 36.6; O2SAT 98
== END 2024-01-11 15:20 | disposition home or self-care (01) ==
PROVIDERS: Emergency Provider Emergency Medicine
DX: U07.1 COVID-19 (principal); R00.0 Tachycardia, unspecified; Z79.899 Other long term (current) drug therapy
CPT/HCPCS: 93005; 99283

== ENCOUNTER → 2024-01-11 15:01 | Outpatient (BNV) | payer MEDICAID, SELFPAY | PROVIDERS: Emergency Provider Emergency Medicine; Visit Provider Internal Medicine Cardiovascular Disease | DX: R00.0 Tachycardia, unspecified (principal); R94.31 Abnormal electrocardiogram [ECG] [EKG] | CPT/HCPCS: 93010 ==

== ENCOUNTER 2024-03-25 13:59 | Emergency (ER) | payer OTHER, SELFPAY ==
[2024-03-25 14:01] VITALS: BP 132/75; PULSE 85; RESP 16; TEMP 36.4; O2SAT 100; BMI 16.2
--- NOTE | 2024-03-25 14:14 | ED_ITS ---
HPI - General Adult General Chief complaint: Dental/Oral Stated complaint: face infection Time Seen by Provider: 03/25/24 14:03 Source: patient Mode of arrival: ambulatory Limitations: no limitations History of Present Illness ED Provider: Marcello Dubon PA-C HPI narrative: 28-year-old female with recurrent history of right upper molar dental infections presents to ED for right upper molars infecting with slight swelling of cheek. Patient denies any drooling, fever, chills, chest pain, shortness of breath, any recent trauma. Patient waiting for follow-up with her dentist. Patient states tooths need to be extracted Related Data Previous Rx's ?Medication ?Instructions ?Recorded chlorhexidine gluconate 0.12 % 15 ml buccal BID #118 mL 01/25/23 mouthwash (Peridex) penicillin V potassium 500 mg 500 mg PO BID 10 days #20 tabs 01/25/23 tablet amoxicillin 875 mg-potassium 1 tab PO BID 10 days #20 tabs 01/26/23 clavulanate 125 mg tablet ketorolac 10 mg tablet 10 mg PO TID PRN pain 5 days #15 01/26/23 tabs morphine 15 mg immediate release 15 mg PO Q6H PRN pain 5 days #10 01/26/23 tablet tabs prednisone 20 mg tablet 40 mg (2 x 20 mg) PO DAILY 5 days 01/26/23 #10 tabs amoxicillin 875 mg-potassium 1 tab PO BID #20 tabs 04/22/23 clavulanate 125 mg tablet ibuprofen 600 mg tablet 600 mg PO Q8H PRN fever or pain 04/22/23 #30 tabs tramadol 50 mg tablet 50 mg PO Q8H PRN severe pain 04/22/23 (scale score 7-10) #10 tabs clindamycin HCl 300 mg capsule 300 mg PO Q8H #20 caps 05/08/23 amoxicillin 875 mg-potassium 1 tab PO BID 10 days #20 tabs 03/25/24 clavulanate 125 mg tablet Allergies Allergy/AdvReac Type Severity Reaction Status Date / Time banana [BANANA] Allergy Severe DIFFICULTY Verified 03/25/24 14:04 BREATHING, ITCHING, BURNING PAIN, LETHARGY Review of Systems 2 Review of Systems: Right upper molar pain Yes all other systems are reviewed and are negative PMFSH Social History Social History Advance Directives: No Advance Directives Information Provided: Yes Do you have a plan to hurt others: No Plan Physical Exam ED Vital Signs: Vital Signs - 24 hr 03/25/24 14:01 03/25/24 14:25 Temperature 97.5 F 97.5 F Pulse Rate 85 85 Respiratory Rate 16 16 Blood Pressure 132/75 132/75 Pulse Oximetry 100 100 Oxygen Delivery Method Room Air Room Air BMI result Body Mass Index 16.2 Const General: cooperative, healthy appearing, comfortable, no acute distress, well developed, alert, awake and Physically active Orientation/consciousness: patient oriented x3 HENMT Other: Negative for facial swelling, negative for tongue swelling negative for uvular swelling, negative for lip swelling. Negative for neck swelling Head: Yes normal to inspection, Yes No palpable skull fracture present, Yes normocephalic and Yes atraumatic Ears: hearing grossly normal bilaterally, external ears normal, TM's normal bilaterally, TM normal on the right, TM normal on the left, EAC's normal, mastoids normal and no periauricular adenopathy Teeth image: 2 1. positive for tenderness on palpation. negative for trismus. positive for yellow collection. negative for facial swelling, gum swelling/erythema, tongue swelling, tongue floor swelling, and sign of peritonsillar abscess. 2. positive for tenderness on palpation. negative for trismus. positive for yellow collection. negative for facial swelling, gum swelling/erythema, tongue swelling, tongue floor swelling, and sign of peritonsillar abscess. 3. positive for tenderness on palpation. negative for trismus. positive for yellow collection. negative for facial swelling, gum swelling/erythema, tongue swelling, tongue floor swelling, and sign of peritonsillar abscess. Eyes General: appearance normal, both eyes and all related structures Neck Neck: Yes normal visual inspection, Yes full ROM, Yes no lymphadenopathy, Yes no meningeal signs, Yes trachea midline, Yes supple, No anterior neck swelling and No tender Chest Chest palpation & inspection: normal inspection of the chest and normal palpation of entire chest wall Resp Effort & Inspection: normal respiratory effort and able to speak in complete sentences Auscultation: clear to auscultation bilaterally Cardio Jugular venous distension: no JVD Heart sounds: S1 normal heart sound present and S2 normal heart sound present GI Inspection: Yes normal to inspection Palpation (GI): Soft to palpation, not firm, nontender, no guarding and not rigid General: No CVA tenderness and Yes no CVA tenderness Back/Spine/Pelvis Back: no CVA tenderness, No CVA tenderness and No back tenderness Skin General skin exam: no rashes or lesions noted, elasticity normal and turgor normal Neuro General: patient oriented x3, gait normal, tone normal, moves all extremities, Normal light touch and pain sensation, no meningeal signs, no focal motor deficits, CN's II-XI intact bilaterally and normal sensation to monofilament Extrem General: Yes normal to inspection, Yes full ROM and Yes capillary refill normal Psych Appearance: grossly normal, well kempt and not disheveled Medical Decision Making Medical Decision Making MDM Narrative: 28-year-old female presents to ED for right upper molar pain due to dental infections. Patient has history of recurrent dental infections in his molars. Patient has follow-up with dentist. Negative for any neck swelling, tongue swelling, facial swelling, drooling, trismus, signs of peritonsillar abscess, or signs of trauma. Not suspecting retropharyngeal abscess, peritonsillar abscess, cellulitis, abscess, Murphy angina, or osteomyelitis. Patient is to be discharged with antibiotics. Patient explained worrisome signs and informed to return to the ED immediately Differential Diagnosis Differential Diagnoses: The differential diagnosis associated with the presentation includes (Tooth infection) Admission/Observation Consideration of admission/observation: Escalation of care including admission/observation considered Independent Historian Clinical information obtained from an independent historian. History obtained from or confirmed by: Other (Patient) External Record Review External record reviewed: Other (Prior visits) Prescription Management I considered prescription management with: Pain Medication and Antibiotic Discharge Plan Discharge Clinical Impression: Toothache Patient Disposition: Home, Self-Care Instructions: Toothache (ED) Additional Instructions: Return to the ED immediately for facial swelling, lip swelling, drooling, change in voice, neck swelling, chest pain, shortness of breath, severe dental pain, or any other concerning symptoms. Recommend follow-up with dentist. Recommend being compliant with antibiotics. You can take Motrin at home for pain. Prescriptions: New amoxicillin-pot clavulanate 875-125 mg tablet 1 tab PO BID 10 Days Qty: 20 0RF No Action penicillin V potassium 500 mg tablet 500 mg PO BID 10 Days Qty: 20 0RF chlorhexidine gluconate [Peridex] 0.12 % mouthwash 15 ml buccal BID Qty: 118 0RF ketorolac 10 mg tablet 10 mg PO TID PRN (Reason: pain) 5 Days Qty: 15 0RF morphine 15 mg tablet 15 mg PO Q6H PRN (Reason: pain) 5 Days Qty: 10 0RF Rx Instructions: Partial Fill upon patient request. amoxicillin-pot clavulanate 875-125 mg tablet 1 tab PO BID 10 Days Qty: 20 0RF prednisone 20 mg tablet 40 mg PO DAILY 5 Days Qty: 10 0RF amoxicillin-pot clavulanate 875-125 mg tablet 1 tab PO BID Qty: 20 0RF ibuprofen 600 mg tablet 600 mg PO Q8H PRN (Reason: fever or pain) Qty: 30 0RF tramadol 50 mg tablet 50 mg PO Q8H PRN (Reason: severe pain (scale score 7-10)) Qty: 10 0RF clindamycin HCl 300 mg capsule 300 mg PO Q8H Qty: 20 0RF Stand Alone Forms: Work/School Release Interventions: ED Discharge Assessment Last Done: 03/25/24 14:25 Discharge Date/Time: 03/25/24 14:25 Print Language: Slovak
[2024-03-25 14:25] VITALS: BP 132/75; PULSE 85; RESP 16; TEMP 36.4; O2SAT 100
== END 2024-03-25 14:25 | disposition home or self-care (01) ==
PROVIDERS: Emergency Provider Emergency Medicine
DX: K08.89 Other specified disorders of teeth and supporting structures (principal); Z79.899 Other long term (current) drug therapy
CPT/HCPCS: 99282; 99283

== ENCOUNTER 2024-12-28 08:53 | Emergency (ER) | payer OTHER, SELFPAY ==
--- NOTE | ~2024-12-28 | XR_ITS ---
EXAMINATION: XR HAND, LEFT CLINICAL INFORMATION: laceration, trauma L 5th digit COMPARISON: None available. TECHNIQUE: PA, lateral, and oblique views of the left hand. FINDINGS: No fracture, dislocation, or suspicious bone lesion. Normal bone mineralization. Normal alignment. Joint spaces are preserved. No significant arthropathy. Soft tissues appear normal. No radiopaque foreign body. XR/XR hand LT min 3V IMPRESSION: Normal left hand and fifth digit. Electronically signed by: Barrington Mac MD 12/28/2024 10:03 AM EDT
[2024-12-28 09:01] VITALS: BP 110/82; BP 123/78; PULSE 76; PULSE 88; RESP 18; TEMP 36.7; O2SAT 100; O2SAT 99; BMI 16.1
[2024-12-28] MEDS: Lidocaine HCl 1 % MPF 5 ML VIAL SUBCUT (09:33)
--- NOTE | 2024-12-28 09:48 | PC.NURSE ---
Per pt, received Tetanus shot approx 3 years ago.
--- NOTE | 2024-12-28 09:58 | ED_ITS ---
HPI - Wound/Laceration General Chief Complaint: Wound/Laceration Stated Complaint: L HAND LAC CUTTING BAGEL PER EMS Time Seen by Provider: 12/28/24 08:57 Source: patient and EMS Mode of arrival: EMS Limitations: no limitations History of Present Illness ED Provider: ELIAN ROTH narrative: 29 yo female no sig PMH Tdap is UTD she is R hand dominant - she c/o L finger laceration on 5th knuckle - she is NV intact, cut finger on bagel slicer was wrapped and cleaned this is a work injury Onset (ago): minute(s) (FACING [employer]) Extremity Location: left: hand Place: work Patient tetanus UTD: Yes Context: sharp object use Associated symptoms: pain Treatments prior to arrival: bandage Related Data Previous Rx's ?Medication ?Instructions ?Recorded chlorhexidine gluconate 0.12 % 15 ml buccal BID #118 mL 01/25/23 mouthwash (Peridex) penicillin V potassium 500 mg 500 mg PO BID 10 days #20 tabs 01/25/23 tablet amoxicillin 875 mg-potassium 1 tab PO BID 10 days #20 tabs 01/26/23 clavulanate 125 mg tablet ketorolac 10 mg tablet 10 mg PO TID PRN pain 5 days #15 01/26/23 tabs morphine 15 mg immediate release 15 mg PO Q6H PRN pain 5 days #10 01/26/23 tablet tabs prednisone 20 mg tablet 40 mg (2 x 20 mg) PO DAILY 5 days 01/26/23 #10 tabs amoxicillin 875 mg-potassium 1 tab PO BID #20 tabs 04/22/23 clavulanate 125 mg tablet ibuprofen 600 mg tablet 600 mg PO Q8H PRN fever or pain 04/22/23 #30 tabs tramadol 50 mg tablet 50 mg PO Q8H PRN severe pain 04/22/23 (scale score 7-10) #10 tabs clindamycin HCl 300 mg capsule 300 mg PO Q8H #20 caps 05/08/23 amoxicillin 875 mg-potassium 1 tab PO BID 10 days #20 tabs 03/25/24 clavulanate 125 mg tablet Allergies Allergy/AdvReac Type Severity Reaction Status Date / Time banana [BANANA] Allergy Severe DIFFICULTY Verified 12/28/24 09:03 BREATHING, ITCHING, BURNING PAIN, LETHARGY Review of Systems Review of Systems: Constitutional : No Fever, No Chills, Cardiovascular : No Chest Pain, No SOB Respiratory : No Dyspnea Gastrointestinal : No abdominal pain Musculoskeletal : No Joint Swelling Skin : No rash, positive skin laceration Neuro : No Weakness, No Numbness Psych : No SI/HI all other systems reviewed and are negative [facility] Past Medical History Attestation statement: The following information was validated with the patient. Source: old records reviewed Medical History (Updated 12/28/24 @ 10:14 by Georgina Desouza DO) Anxiety Social History Social History (Updated 12/28/24 @ 10:14 by Georgina Desouza DO) Patient Tobacco Use Status: Tobacco use Unknown Physical Exam Vital Signs: Vital Signs: Last Vital Signs Temp 98.0 F 12/28/24 09:01 Pulse 88 12/28/24 09:01 Resp 18 12/28/24 09:01 BP 123/78 12/28/24 09:01 Pulse Ox 100 12/28/24 09:01 O2 Del Method Room Air 12/28/24 09:01 BMI result Body Mass Index 16.1 Appearance: Alert. Oriented X3. No acute distress. Eyes: Pupils equal, round and reactive to light. ENT: Pharynx normal. Neck: Normal inspection. Neck supple. CVS: Pulses normal. Respiratory: No respiratory distress. Abdomen: Soft and nontender. Skin: Skin warm and dry. Normal skin color. L dorsum of 5th MCP joint - distal BCR , SILT intact, normal flexion when hand is flat there is slight sluggish raise with extension but she can lift the finger up. looking at laceration I can see part of the extensor tendon no obvious disruption but give sluggish extension will close loosely and splint. 1cm Extremities: No lower extremity edema. Neuro: Oriented X 3. No motor deficit. No sensory deficit. CN2-12 intact Medications Administered Discontinued Medications Generic Name Dose Route Start Last Admin Trade Name Freq PRN Reason Stop Dose Admin Diphtheria/Tetanus/Acell Pertussis 0.5 ml 12/28/24 09:19 12/28/24 09:47 Diphth,Pertus(Acell),Tet Adult 0.5 Ml Syringe IM 12/28/24 09:20 Not Given .ONCE ONE Lidocaine HCl 5 ml 12/28/24 09:19 12/28/24 09:33 Lidocaine Hcl 1 % Mpf 5 Ml Vial SUBCUT 12/28/24 09:20 5 ml ONCE ONE Administration Medical Decision Making Medical Decision Making MDM Narrative: 29 yo carlos manuel with no sig PMH s/p tdap 2 years ago now here with c/o L hand 5th MCP laceration on exam she has flexion intact, SILT BCR in digit, I can see partial ext tendon it is slightly sluggish raising it at this time will appr oximate sutures and instruct her to call ortho today Differential Diagnosis Differential Diagnoses: The differential diagnosis associated with the presentation includes laceration, tendon injury Independent Interpretation I performed an independent interpretation of an: Plain X-Ray (normal ) Radiology Impression Discussion of test interpretation with radiology: I have reviewed the radiologist's reading. External Record Review External record reviewed: Outpatient record Procedures Laceration Laceration 1: Site: hand Side (If applicable): right Size (cm): 1 Description: linear Depth: simple, single layer Local Anesthetic: lidocaine 1% Amount of anesthesia used (mL): 3 Pre-repair: wound explored, irrigated extensively and deep structures intact (question extensor injury) Skin layer closed with: nylon Size (cm): 6-0 Number of sutures: 2 Technique: simple, interrupted Discharge Plan Discharge Clinical Impression: Laceration Patient Disposition: Home, Self-Care Instructions: Laceration (ED) Additional Instructions: xray normal sutures out in 7 days clean water only okay to shower in 24 hours keep area clean and dry return for redness, swelling, fevers, yellow drainage splint on until you see them next week okay to take off when you shower need to follow up to make sure extensor tendon is okay Prescriptions: No Action penicillin V potassium 500 mg tablet 500 mg PO BID 10 Days Qty: 20 0RF chlorhexidine gluconate [Peridex] 0.12 % mouthwash 15 ml buccal BID Qty: 118 0RF ketorolac 10 mg tablet 10 mg PO TID PRN (Reason: pain) 5 Days Qty: 15 0RF morphine 15 mg tablet 15 mg PO Q6H PRN (Reason: pain) 5 Days Qty: 10 0RF Rx Instructions: Partial Fill upon patient request. amoxicillin-pot clavulanate 875-125 mg tablet 1 tab PO BID 10 Days Qty: 20 0RF prednisone 20 mg tablet 40 mg PO DAILY 5 Days Qty: 10 0RF amoxicillin-pot clavulanate 875-125 mg tablet 1 tab PO BID Qty: 20 0RF ibuprofen 600 mg tablet 600 mg PO Q8H PRN (Reason: fever or pain) Qty: 30 0RF tramadol 50 mg tablet 50 mg PO Q8H PRN (Reason: severe pain (scale score 7-10)) Qty: 10 0RF amoxicillin-pot clavulanate 875-125 mg tablet 1 tab PO BID 10 Days Qty: 20 0RF clindamycin HCl 300 mg capsule 300 mg PO Q8H Qty: 20 0RF Referrals: [facility] [place]Provider Group] (call today to schedule follow up this week) Stand Alone Forms: Work/School Release Print Language: Algerian
[2024-12-28 10:33] VITALS: BP 123/78; PULSE 88; RESP 18; TEMP 36.7; O2SAT 100
== END 2024-12-28 10:34 | disposition home or self-care (01) ==
PROVIDERS: Emergency Provider Emergency Medicine
DX: S61.217A Laceration without foreign body of left little finger without damage to nail, initial encounter (principal); W27.8XXA Contact with other nonpowered hand tool, initial encounter; Y93.G1 Activity, food preparation and clean up; Y92.511 Restaurant or cafe as the place of occurrence of the external cause; Y99.0 Civilian activity done for income or pay
CPT/HCPCS: 12041; 73130; 99282; 99283; 99284; J2003

== ENCOUNTER → 2024-12-28 09:47 | Outpatient (BNV) | payer OTHER, SELFPAY | PROVIDERS: Emergency Provider Emergency Medicine; Visit Provider Radiology Diagnostic Radiology | DX: S61.412A Laceration without foreign body of left hand, initial encounter (principal) | CPT/HCPCS: 73130 ==